=== PATIENT | female | born 1940 ===

== ENCOUNTER 2019-06-14 14:07 | Observation (INO) ==
[2019-06-14] MEDS ORDERED: SODIUM CHLORIDE 0.9% INJ SCH (14:45)
[2019-06-14] MEDS ORDERED: PROTONIX IV SCH (14:45)
[2019-06-14] MEDS ORDERED: ZOFRAN IV PRN (14:46)
[2019-06-14] MEDS ORDERED: SODIUM CHLORIDE 0.9% INJ PRN (14:49)
[2019-06-14 15:05] LABS: BASO# 0.05 X1000 (0.0-0.2); BASO% 0.6 % (0.0-0.8); EOS# 0.02 X1000 (0.0-0.7); EOS% 0.2 % (0.0-10.0); HEMOGLOBIN 11.5 g/dL (12.0-16.0); LYMPH# 2.21 X1000 (1.2-3.4); LYMPH% 26.9 % (20.5-51.1); MCH 27.5 PG (27-31); MCHC 31.9 g/dL (33-37); MCV 86.1 FL (81-99); MONO# 0.39 X1000 (0.11-0.59); MONO% 4.8 % (1.7-9.3); NEUT# 5.54 X1000 (1.4-6.5); NEUT% 67.5 % (42.2-75.2); PLT 220 X1000 (130-400); RBC 4.18 XMIL (4.2-5.4); RDW 18.4 % (11.5-14.5); WBC 8.21 X1000 (4.8-10.8)
[2019-06-14] MEDS ORDERED: AFRIN NASAL SPRAY NAS ONE (15:09)
[2019-06-14 15:14] LABS: INR 1.07
[2019-06-14] MEDS ORDERED: DIPRIVAN 1% ONE (16:29)
[2019-06-14] MEDS ORDERED: QUELICIN (DOSE) ONE ×2 (16:30→16:31)
[2019-06-14] MEDS ORDERED: XYLOCAINE-MPF 2% ONE (16:30)
[2019-06-14] MEDS ORDERED: XYLOCAINE 1%/EPI 1:100,000 ONE (16:34)
[2019-06-14] MEDS ORDERED: AFRIN NASAL SPRAY ONE (16:34)
[2019-06-14] MEDS ORDERED: CLINDAMYCIN 600 MG/D5W 600 MG/50 ML IVPB ONE (16:43)
[2019-06-14] MEDS ORDERED: EPHEDRINE ONE (17:30)
[2019-06-14] MEDS ORDERED: BACTROBAN OINTMENT ONE (17:41)
--- NOTE | 2019-06-14 17:58 | HISTORY AND PHYSICAL ---
CHIEF COMPLAINT: The patient has been transferred from [facility] due to active bleeding/epistaxis. HISTORY OF PRESENT ILLNESS: This is a 78-year-old female with a past medical history of atrial fibrillation, on anticoagulation with Eliquis twice a day (also, she is on aspirin), and history of hypothyroidism. She was transferred from [facility] due to epistaxis that has been continuously going on since 3 a.m. today. They tried to pack the right nostril, but she is still bleeding profusely, and she is also having some blood going down through her throat. At this moment, her vital signs are pulse 75, respiratory rate 20, blood pressure stable at 128/72, and she is on room air at 97%, I am going to type and cross this patient for the possibility of blood transfusion. I contacted the ER doctor and he came in and blocked the other nostril on the left side. I will go ahead and transfer this patient to the ICU. I personally talked to Dr. Macias, and he will see the patient today. The last time she took her Eliquis was yesterday at 4 p.m,. and apparently this kind of problem happened before with nose bleeding due to anticoagulation. She denies diarrhea, constipation, chest pain, shortness of breath, headache. She has some nausea due to the blood coming down through her throat. No dysuria but some generalized weakness at this moment. REVIEW OF SYSTEMS: All the 14 points of the review of systems were reviewed, all of them negative except as per HPI. PAST MEDICAL HISTORY: Positive for atrial fibrillation. She has been on anticoagulation since December of last year with Eliquis twice a day, and also she is on aspirin. She has hypothyroidism. Her thyroid gland has been removed. PAST SURGICAL HISTORY: Total thyroidectomy, hysterectomy, hemorrhoidectomy, rotator cuff injury repeat repair, and her gallbladder has been removed. PAST FAMILY HISTORY: Noncontributory at this moment. PHYSICAL EXAMINATION: VITAL SIGNS: Temperature 98.6, pulse 75, respiratory rate 20, blood pressure 128/72, oxygen saturation 97% on room air. HEENT: Head normocephalic no trauma. She is actively bleeding through her right nostril, and this side has been packed, but it has a little tube in the middle that is full of blood and actively bleeding. I do not see any bleeding through the left side. NECK: Supple. No JVD. Central trachea. CHEST: Clear to auscultation. No wheezing. No rales. ABDOMEN: Soft, nontender, nondistended. No hepatosplenomegaly. EXTREMITIES: No clubbing, no cyanosis. NEUROLOGICAL: The patient is awake, alert. She is oriented x3. No focal deficits. LABORATORY: Pending lab work at this moment. ASSESSMENT AND PLAN: 1. Epistaxis. This process has been going on since 3 a.m. today, and has been on and off. She went to [facility], and they tried to packed the right side of the nose multiple times, but it looks like she is still bleeding, so they contacted us, and they transferred this patient to the hospital. We contacted Dr. Macias, [id number] doctor, to take care of the situation. He has been previously contacted by [facility], so he knows about the patient. 2. History of atrial fibrillation, on anticoagulation. I will stop the anticoagulation due to her current bleeding. Also, she has she has been on aspirin, which I will discontinue as well. The last time she took Eliquis was yesterday at 4 p.m. The half-life of this medication is around 12 hours, and at this point it has been almost 24 hours without the medication. 3. Hypothyroidism. This patient had a total thyroidectomy. I do not know the exact reason at this moment. She is not able to talk too much because of the active bleed, but we will address that in the future. I will continue with her levothyroxine, which is going to be provided IV because I will put this patient n.p.o. 4. The patient has been placed n.p.o. Dr. Macias has been consulted, our [id number] doctor. Hopefully, he will take care of this situation/epistaxis. 5. Further recommendations pending hospital course. cc: Samy Quintero MD
[2019-06-14] MEDS ORDERED: APRESOLINE ONE (18:18)
[2019-06-14] MEDS ORDERED: ZOFRAN ONE (18:31)
--- NOTE | 2019-06-14 18:46 | OPERATIVE NOTE ---
PROCEDURE DATE: 06/14/2019 PREOPERATIVE DIAGNOSIS: Bilateral epistaxis. POSTOPERATIVE DIAGNOSIS: Right nasal epistaxis. PROCEDURE: Endoscopic control of right nasal epistaxis. SURGEON: Marcello Macias MD. COMPLICATIONS: None. ANESTHESIA: General with endotracheal intubation. FINDINGS: Two significant bleeding sites noted on the lateral surface of the middle turbinate in the middle meatus. One spot also over the uncinate. Various abrasions also noted along the site of the right nasal septum given a central septal deviation and Rhino Rocket placement. DESCRIPTION OF PROCEDURE: Patient was identified, consented. Options were reviewed. She was brought to the operating room urgently and placed in supine position where general anesthesia was induced with endotracheal intubation. The nose was addressed after the patient was prepped and draped in usual sterile fashion. Endoscope was used to visualize bilateral nasal cavities. Copious clots were removed. Prior to using Afrin, there was bleeding noted coming from the middle meatus on the right. The left side had no active bleeding sites noted. When looking at the nasopharynx only, the right side was actively pooling blood. Of course, this was all done after the Rhino Rockets were removed. Suction Bovie cautery was used to cauterize 2 or 3 spots in the middle meatus on the right. The main site of bleeding was thought to be the anterolateral surface of the middle turbinate in the middle meatus. This was cauterized and then packed with Surgicel over a Laureano pack with Bactroban instilled around it all. Another Laureano pack was placed below this in the nasal cavity at a point where the septal spur had been excoriated by a Laureano pack. This was cauterized, the ointment was applied, and the Laureano pack, both of them were blown up with saline dripped onto the pad. The pads were then taped to her cheek. The nasopharynx was cleared by scoping the contralateral nasal cavity. Valsalva maneuver showed no further bleeding. The patient tolerated the procedure well, was allowed to recover from anesthesia, transferred to the recovery room in stable condition. cc: Marcello Macias MD
[2019-06-14] MEDS ORDERED: SODIUM CHLORIDE 0.9% 10 ML ONE (18:50)
[2019-06-14] MEDS: PHENERGAN ONE ×2 (18:52→19:03)
--- NOTE | 2019-06-14 19:31 | EKG Report ---
Test Performed on : 06/14/2019 3:58:52 PM Test Reason : Pre-op Blood Pressure : / mmHG Vent. Rate : 084 BPM Atrial Rate : 277 BPM P-R Int : 000 ms QRS Dur : 078 ms QT Int : 396 ms P-R-T Axes : 000 043 037 degrees QTc Int : 467 ms Atrial fibrillation. Nonspecific ST and T wave abnormality Abnormal ECG No previous ECGs available Confirmed by Kalia Shore MD ([id number]) on 06/17/2019 7:39:32 AM
[2019-06-14] MEDS: NS 1,000 ML IV SCH (19:58)
[2019-06-14] MEDS: TORADOL IV PRN (21:11)
[2019-06-15] MEDS: AYR NASAL SPRAY NAS SCH ×3 (02:30→12:23)
[2019-06-15] MEDS: CLINDAMYCIN 600 MG/D5W 600 MG/50 ML IVPB IV SCH ×2 (02:31→09:00)
[2019-06-15] MEDS: TORADOL IV PRN (04:13)
[2019-06-15] MEDS: NS 1,000 ML IV SCH (04:56)
[2019-06-15 05:55] LABS: BASO# 0.05 X1000 (0.0-0.2); BASO% 0.8 % (0.0-0.8); EOS% 1.6 % (0.0-10.0); HEMATOCRIT 30.2 % (37.0-47.0); HEMOGLOBIN 9.5 g/dL (12.0-16.0); LYMPH% 38.8 % (20.5-51.1); MCH 27.4 PG (27-31); MCHC 31.5 g/dL (33-37); MONO# 0.69 X1000 (0.11-0.59); MONO% 11.2 % (1.7-9.3); MPV 11.6 FL (7.4-10.4); NEUT# 2.94 X1000 (1.4-6.5); NEUT% 47.6 % (42.2-75.2); PLT 189 X1000 (130-400); RBC 3.47 XMIL (4.2-5.4); RDW 18.7 % (11.5-14.5); WBC 6.18 X1000 (4.8-10.8)
[2019-06-15 06:12] LABS: AGAP 11; ALB/GLOB RATIO 1.5; ALBUMIN 3.4 g/dL (3.5-5.0); ALKALINE PHOSPHATASE 119 U/L (32-104); BUN 13 mg/dL (8-22); CALCIUM 8.4 mg/dL (8.8-10.2); CHLORIDE 104 mmol/L (98-107); COSMO 279; CREATININE 0.7 mg/dL (0.5-0.9); GLUCOSE 87 mg/dL (70-104); GOT 31 U/L (10-30); GPT 25 U/L (10-36); POTASSIUM 3.7 mmol/L (3.5-5.1); SODIUM 140 mmol/L (136-145); TCO2 25 mmol/L (25-35); TOTAL BILIRUBIN 0.47 mg/dL (0.20-1.00); TOTAL PROTEIN 5.7 g/dL (6.3-8.3)
[2019-06-15] MEDS ORDERED: SYNTHROID IV SCH (07:00)
--- NOTE | 2019-06-15 08:27 | DISCHARGE SUMMARY ---
ADMISSION DATE: 06/14/2019 DISCHARGE DATE: DISCHARGE DIAGNOSES: 1. Right nasal epistaxis, status post endoscopic control of right nasal epistaxis. 2. History of atrial fibrillation, on chronic anticoagulation. 3. Hypothyroidism. HOSPITAL COURSE: A 78-year-old female with a past medical history of atrial fibrillation, on anticoagulation with Eliquis twice a day and aspirin, history of hypothyroidism, was admitted yesterday, on 06/14/2019. She was transferred from [facility] due to epistaxis that has been continuously going on since yesterday at 3 a.m. They tried to pack the right nostril but she was bleeding profusely so they decided to transfer this patient to this center. Vital signs were stable. We contacted the ENT doctor to evaluate this patient and he did an endoscopic control of the right nasal epistaxis. He found 2 significant bleeding sites on the lateral surface of the middle turbinate and the middle meatus, one spot also over the uncinate. She has some abrasions also noted along the side of the right nasal septum, given a central septum deviation and Rhino Rocket placement. The patient looks like she tolerated well the procedure. Today, she is feeling much better. She is not complaining of pain, nausea, or vomiting. I will start this patient on a diet and hopefully, after receiving her third dose of clindamycin which has been recommended by the ENT doctor, I will discharge this patient home if she is tolerating p.o. and also having no problem walking. The patient will follow up in [address] Macias on 06/18/2019. PHYSICAL EXAMINATION: Vital Signs: Temperature 98.6 degrees, pulse 65, respiratory rate 13, blood pressure 125/75, oxygen saturation 95% on room air. HEENT: Head normocephalic. No trauma. PERRLA. She has a device inside her right nostril. Neck: Supple. No JVD. Central trachea. Chest: Clear to auscultation. No wheezing. No rales. Abdomen: Soft, nontender, nondistended. No hepatosplenomegaly. Extremities: No edema, no clubbing, no cyanosis. Neurological Examination: The patient is awake. She is alert. She is oriented x3. No focal deficits. LABORATORY: WBCs 6.1, hemoglobin 9.5, hematocrit 30.2, platelets 189,000. Sodium 140, potassium 3.7, chloride 104, bicarbonate 25, BUN 13, creatinine 0.7, glucose 87, calcium 8.4. AST 31, ALT 25, alkaline phosphatase 119, albumin 3.4. DISCHARGE MEDICATIONS: 1. Vitamin D2 with 25 mcg p.o. daily. 2. Furosemide 20 mg p.o. as directed, 2 per week. 3. Ibuprofen 200 mg p.o. every 8 hours as needed for pain. 4. Synthroid 100 mcg p.o. at 7 a.m. 5. Magnesium 400 mg p.o. daily. The patient seems to be stable. She will follow up with Dr. Macias in 3 days. I will put her on a diet so she can go home. cc: Samy Quintero MD
[2019-06-15 12:22] VITALS: BP 120/88
== END 2019-06-15 13:19 | disposition home or self-care (01) ==
LOC: DIRADM → 4N 14:07 → ICU 18:31
PROVIDERS: ATTEND Internal Medicine